=== PATIENT | male | born 1985 | race Caucasian/White ===

== ENCOUNTER 2021-02-17 17:42 | Emergency (ER) | payer BC, SELFPAY ==
[2021-02-17 17:50] VITALS: BP 152/84; PULSE 97; RESP 16; TEMP 36.9; O2SAT 99
--- NOTE | 2021-02-17 17:51 | ED.DENTAL ---
HPI - Dental/Oral General Chief complaint: Dental/Oral Stated complaint: Tooth pain Time Seen by Provider: 02/17/21 17:57 Mode of arrival: ambulatory Limitations: no limitations History of Present Illness HPI Narrative: 35-year-old male presents with concern for right lower dental pain for several days. Reports he has broken teeth in that area, and had a piece of steak several days ago and after that began having pain. Reports history of dental infections. Reports he does not have dental insurance. He denies difficulty swallowing, fever, body aches, chills. Reports pain ebbs and flows from a 3/10 to a 10/10. Reports has been taking ibuprofen. Complaint: tooth pain Related Data Allergies Allergy/AdvReac Type Severity Reaction Status Date / Time No Known Allergies Allergy Unknown Verified 01/27/06 12:13 Review of Systems Review of Systems: CONSTITUTIONAL: Denies malaise, chills, sweats, or fever. EYES: Denies visual changes ENT: Denies rhinorrhea, congestion, sinus pain, otalgia or sore throat. Reports right lower dental pain CARDIOVASCULAR: Denies chest pain, palpitations RESPIRATORY: Denies cough or dyspnea. SKIN: Denies rash or itching. MUSCULOSKELETAL: Denies myalgia. NEUROLOGIC: Denies numbness, weakness, or headache. All systems reviewed & are unremarkable except as noted in HPI and below PMFSH Comments At time of signature, agree with nursing past medical, surgical, social and family history. There is no relevant family history pertinent to the presenting complaint Exam Narrative: GENERAL: Well-appearing, well-nourished, and in no acute distress. HEAD: Normocephalic, atraumatic. EYES: PERRLA, sclera clear ENT: Nares clear, turbinates pink, no rhinorrhea or epistaxis. Mucous membranes moist. TM pearly gann with sharp light reflex bilaterally; no tragal tenderness. Oropharynx without erythema or lesions. Tonsils not enlarged and without exudate. Missing teeth, broken teeth, caries throughout. No jaw swelling noted NECK: Supple. No lymphadenopathy. CHEST: No respiratory distress. Speaks in full sentences. HEART: Regular rate and rhythm. SKIN: Warm, dry, no visible rash. NEURO: Alert and oriented x3. PSYCH: Normal mood and affect Course Course Emergency Course: Patient is aware of diagnosis, understands and agrees to treatment plan. Anticipatory guidance given. Patient agrees to follow-up as directed and is aware of reasons to seek care at the emergency department. Portions of this record may have been created with voice recognition software Level of Care: Express Care Visit Vital Signs Vital signs: Reviewed. MDM - Dental/Oral MDM Narrative Medical decision making narrative: Patients pain and complaint coupled with physical findings are consistant with dentalgia. There are no focal signs of space occupying lesions that are compromising to the airway; no dysphagia, odynophagia, dysphonia, or dyspnea. No uvular deviation or soft palate edema. Patient is non-toxic appearing. The floor of the mouth is soft with no signs of Christopher's Angina; no induration below mandible, no neck pain. Patient is without trismus or drooling and able to swallow secretions. Patient is felt appropriate for discharge home with dental follow up. Differential Diagnosis Differential diagnosis: Likely gingival abscess, dental caries, toothache, dental abscess, fracture of tooth and aphthous ulcer Critical Care Time Critical Care Time Critical Care Time: No Discharge Plan Discharge Clinical Impression: Toothache Patient Disposition: Home, Self-Care Condition: Stable Instructions: Antibiotic Form, Toothache (ED) Additional Instructions: Take antibiotic as directed Avoid temperature extremes May apply heat or ice to the face Gentle brushing and flossing Alternate Tylenol and ibuprofen as needed for pain Follow-up with the dentist as soon as possible--see the list provided Prescriptions: New clindamycin
== END 2021-02-17 18:12 | disposition home or self-care (01) ==
PROVIDERS: Emergency Provider Nurse Practitioner
DX: K08.89 Other specified disorders of teeth and supporting structures (principal)
CPT/HCPCS: 99213; G0463

== ENCOUNTER 2021-12-30 17:29 | Emergency (ER) | payer BC, SELFPAY ==
[2021-12-30 17:42] VITALS: BP 136/74; PULSE 100; RESP 18; TEMP 37.2; O2SAT 99
--- NOTE | 2021-12-30 18:48 | ED.URI ---
HPI - URI/Sore Throat General Chief Complaint: Upper Respiratory Infection Stated Complaint: fever/bodyaches Source: patient and RN notes reviewed Mode of arrival: ambulatory Limitations: no limitations History of Present Illness HPI Narrative: 36-year-old male presented for complaint of headache, body aches, sinus pressure/congestion, cough, fever/chills. Onset yesterday. Endorses son is sick with COVID. Denies nausea, vomiting, shortness of breath or wheezing. MD elicited complaint: cough Related Data Home Medications Medication Instructions Recorded Confirmed No Home Medications 12/30/21 12/30/21 Allergies Allergy/AdvReac Type Severity Reaction Status Date / Time No Known Allergies Allergy Unknown Verified 01/27/06 12:13 Review of Systems Review of Systems: CONSTITUTIONAL: Endorses malaise, chills, sweats, fever EYES: Denies visual changes, redness, or discharge ENT: Reports rhinorrhea, congestion, sinus pain, otalgia, sore throat CARDIOVASCULAR: Denies chest pain, palpitations, edema RESPIRATORY: Reports cough, post nasal drainage. Denies dyspnea GASTROINTESTINAL: Denies abdominal pain, nausea, vomiting, diarrhea SKIN: Denies rash or itching MUSCULOSKELETAL: Endorses myalgia NEUROLOGIC: reports headache Exam Narrative: GENERAL: Ill-appearing, nontoxic EYES: PERRLA, conjunctivae clear ENT: Mucous membranes moist. CHEST: Clear to auscultation, breath sounds equal. No wheezing, rhonchi, rales, or stridor. No respiratory distress, speaks in full sentences. HEART: Regular rate and rhythm. No murmur heard. SKIN: Warm, dry, no rash. NEURO: Alert and oriented x3. PSYCH: Normal mood and affect Course Course Emergency Course: Patient is aware of diagnosis, understands and agrees to treatment plan. Anticipatory guidance given. Patient agrees to follow-up as directed and is aware of reasons to seek care at the emergency department. Portions of this record may have been created with voice recognition software Level of Care: Express Care Visit Vital Signs Vital signs: Vital Signs Temperature 98.9 F 12/30/21 17:42 Pulse Rate 100 12/30/21 17:42 Respiratory Rate 18 12/30/21 17:42 Blood Pressure 136/74 12/30/21 17:42 Pulse Oximetry 99 12/30/21 17:42 Oxygen Delivery Room Air 12/30/21 17:42 Temperature 98.9 F 12/30/21 17:42 Pulse Rate 100 12/30/21 17:42 Respiratory Rate 18 12/30/21 17:42 Blood Pressure 136/74 12/30/21 17:42 Pulse Oximetry 99 12/30/21 17:42 Oxygen Delivery Room Air 12/30/21 17:42 reviewed MDM - URI/Sore Throat MDM Narrative Medical decision making narrative: covid positive. result reviewed with pt. Advised supportive measures and signs/symptoms to go to the ER. Pt is appropriate for outpt treatment and f/u. Differential Diagnosis Differential diagnosis: Likely upper respiratory infection, sinusitis and viral infection Lab Data Labs: Lab Results 12/30/21 Range/Units 17:50 POC SARS CoV-2 Ag Positive (Negative) Discharge Plan Discharge Clinical Impression: COVID-19 Patient Disposition: Home, Self-Care Condition: Stable Instructions: COVID-19 (Coronavirus Disease 2019) (ED) Additional Instructions: Your rapid COVID test was positive today. The following recommendations have been made by the CDC and local Health Departments, regarding COVID-19: -Those individuals with mild cases of COVID-19 can generally be discontinued from isolation 5 days AFTER the onset of symptoms AND the resolution of fever for 24hrs (without the use of fever-reducing medications)* -When you return to public, wear a mask at all times for an additional 5 days Rest, stay hydrated. Tylenol 1000mg every 8 hours as needed for pain/fever; alternate with ibuprofen 600mg every 8 hours as needed Flonase/nasal spray, Zyrtec, cough syrup cold/flu medications for symptoms as needed Prescriptions: No Action No Home Medications Follow
== END 2021-12-30 18:59 | disposition home or self-care (01) ==
PROVIDERS: Emergency Provider Nurse Practitioner Family
DX: U07.1 COVID-19 (principal)
CPT/HCPCS: 87426; 99213; C9803; G0463

== ENCOUNTER 2023-07-13 12:02 | Emergency (ER) | payer BC, SELFPAY ==
--- NOTE | 2023-07-13 12:03 | ED.DENTAL ---
HPI - Dental/Oral General Chief complaint: Dental/Oral Stated complaint: left side tooth pain Time Seen by Provider: 07/13/23 12:03 Source: patient Mode of arrival: ambulatory Limitations: no limitations History of Present Illness HPI Narrative: Lenin is a 38-year-old male patient presenting to the clinic today with complaints of left-sided upper dental pain. He reports this has been going on for the past 4 days. States that he has very poor dentition and has a fracture of his left upper molar that has broken worse after eating steak a few days ago. Is complaining of pain and swelling to the left upper jaw/tooth ache Related Data Allergies Allergy/AdvReac Type Severity Reaction Status Date / Time No Known Allergies Allergy Unknown Verified 07/13/23 12:05 Review of Systems Review of Systems: Pertinent positives per HPI. Patient denies any fever, chills, rash, headache, visual changes, dizziness, cough, runny nose, sore throat, shortness of breath, chest pain, palpitations, nausea, vomiting, diarrhea, constipation, abdominal pain, or any urinary issues. PMFSH Comments At the time of my signature, I reviewed and agree with the nursing past medical, surgical, social, and family history. There is no relevant family history pertinent to the patient complaint. Exam Narrative: General: Well-developed, well nourished, in no apparent distress Head: Normocephalic, atraumatic Eyes: Pupils equally round and reactive to light bilaterally, EOM intact, sclera and conjunctive clear, no discharge, lids normal Ears: TMs intact and clear, ear canals clear, no drainage, grossly hearing normal. Nose: Nares patent, no discharge, no inflammation, no sinus tenderness. Mouth: Oropharynx without lesions or masses, very poor dentition, MMM. Fracture/decay of the left upper 2nd molar. Neck: Supple, trachea midline, no enlargement of anterior or posterior cervical nodes, no thyroid masses or goiter palpable. Cardio: Regular rate and rhythm, s1 and s2 normal, no murmur appreciated. Resp: Clear to auscultation bilaterally anteriorly and posteriorly, no rhonchi, rales, wheezing or rubs Course Course Emergency Course: Portions of this record may have been created with voice recognition software. Level of Care: Express Care Visit Vital Signs Vital signs: Vital signs reviewed MDM - Dental/Oral MDM Narrative Medical decision making narrative: At the time of visit patient is resting comfortably on the exam table. Patient appears to be nontoxic. Plan: I suspect patient has a toothache-tooth is fractured and decayed. Will follow-up with the dentist as soon as possible. Prescription for clindamycin was sent to the pharmacy. Supportive measures were discussed with the patient and they voiced understanding discharge instructions and agrees to treatment plan. Return precautions reviewed Differential Diagnosis Differential diagnosis: Likely gingival abscess, dental caries, toothache, dental abscess, fracture of tooth and aphthous ulcer Discharge Plan Discharge Clinical Impression: Toothache Patient Disposition: Home, Self-Care Condition: Stable Instructions: Antibiotic Form, Toothache (ED) Additional Instructions: Increase fluids and stay well hydrated Take Tylenol/Motrin as needed for pain May apply ice pack to the affected area to help alleviate pain Take antibiotics as prescribed Follow-up with your dentist as soon as possible Prescriptions: New clindamycin HCl 300 mg capsule 300 mg PO Q8H 10 Days Qty: 30 0RF Follow-up/Referrals: PHYSICIAN,PICTURE ENLARGER [Primary Care Provider] - Time of Disposition: 12:30 Quality NIHSS Nursing Documentation ED NIHSS nursing documentation: reviewed/agree
[2023-07-13 12:13] VITALS: BP 134/87; PULSE 69; RESP 16; TEMP 36.9; O2SAT 100
== END 2023-07-13 12:35 | disposition home or self-care (01) ==
LOC: EXPCOLL 12:08
PROVIDERS: Emergency Provider Nurse Practitioner Family
DX: K08.89 Other specified disorders of teeth and supporting structures (principal); Z86.16 Personal history of COVID-19
CPT/HCPCS: 99213; G0463

== ENCOUNTER 2024-05-24 12:34 | Emergency (ER) | payer BC, SELFPAY ==
[2024-05-24 12:47] VITALS: BP 116/74; PULSE 77; RESP 16; TEMP 36.6; O2SAT 100
--- NOTE | 2024-05-24 13:01 | ED_ITS ---
HPI - URI/Sore Throat General Chief Complaint: Upper Respiratory Infection Stated Complaint: sinus problem ,left ear pain,chest congestion Time Seen by Provider: 05/24/24 12:55 Source: patient Mode of arrival: ambulatory Limitations: no limitations History of Present Illness HPI Narrative: Lenin is a 39-year-old female patient presenting to the clinic today with complaints of sinus congestion, left ear pain, and chest congestion. He reports symptoms have been going on for 5 days. Has felt feverish. Denies any chest pain or shortness of breath. Related Data Allergies Allergy/AdvReac Type Severity Reaction Status Date / Time No Known Allergies Allergy Unknown Verified 05/24/24 12:36 Review of Systems Review of Systems: Pertinent positives per HPI. Patient denies any rash, headache, visual changes, dizziness, shortness of breath, chest pain, palpitations, nausea, vomiting, diarrhea, constipation, abdominal pain, or any urinary issues. PMFSH Comments At the time of my signature, I reviewed and agree with the nursing past medical, surgical, social, and family history. There is no relevant family history pertinent to the patient complaint. Exam Narrative: General: Well-developed, well nourished, in no apparent distress Head: Normocephalic, atraumatic Eyes: Pupils equally round and reactive to light bilaterally, EOM intact, sclera and conjunctive clear, no discharge, lids normal Ears: Right TMs intact and clear, left TM intact, bulging, red, ear canals clear, no drainage, grossly hearing normal. Nose: Nares patent, clear nasal discharge, moderate inflammation, no sinus tenderness. Mouth: Oral pharynx without lesions or masses, good dentition, MMM. Neck: Supple, trachea midline, no enlargement of anterior or posterior cervical nodes, no thyroid masses or goiter palpable. Cardio: Regular rate and rhythm, s1 and s2 normal, no murmur appreciated. Resp: Clear to auscultation bilaterally, no rhonchi, rales, wheezing or rubs Course Course Emergency Course: Portions of this record may have been created with voice recognition software. Level of Care: Express Care Visit Vital Signs Vital signs: Vital Signs Temperature 36.6 C 05/24/24 12:47 Pulse Rate 77 05/24/24 12:47 Respiratory Rate 16 05/24/24 12:47 Blood Pressure 116/74 05/24/24 12:47 Pulse Oximetry 100 05/24/24 12:47 Oxygen Delivery Room Air 05/24/24 12:47 Temperature 36.6 C 05/24/24 12:47 Pulse Rate 77 05/24/24 12:47 Respiratory Rate 16 05/24/24 12:47 Blood Pressure 116/74 05/24/24 12:47 Pulse Oximetry 100 05/24/24 12:47 Oxygen Delivery Room Air 05/24/24 12:47 Vital signs reviewed MDM - URI/Sore Throat MDM Narrative Medical decision making narrative: At the time of visit patient is resting comfortably on the exam table. Patient appears to be nontoxic. Plan: I suspect patient has left otitis media/URI. Will send in prescription for prednisone and amoxicillin. Supportive measures were discussed with the patient and they voiced understanding discharge instructions and agrees to treatment plan. Return precautions reviewed Differential Diagnosis Differential diagnosis: Likely upper respiratory infection, otitis media, sinusitis, viral infection, bronchitis, influenza, pharyngitis and other (COVID) Discharge Plan Discharge Clinical Impression: Acute left otitis media Upper respiratory infection Qualifiers: URI type: unspecified URI Qualified Code(s): J06.9 - Acute upper respiratory infection, unspecified Patient Disposition: Home Condition: Stable Instructions: Antibiotic Form, Ear Infection (ED), Cold Symptoms (ED) Additional Instructions: Take prescription medications only as prescribed-amoxicillin and prednisone Increase fluids and stay well hydrated Tylenol/motrin for pain/fever Flonase and OTC antihistamines as directed Vicks vapor rub to open sinuses Sinus rinses for congestion Cepacol spray, cough drops, throat lozenges, warm tea with honey/lemon, gargle salt water to soothe throat BRAT diet for diarrhea Clear liquids x 24 hours then advance as tolerated for nausea/vomiting Go to the ED if you develop a worsening in your condition- high fever not controlled by Tylenol or Motrin, dehydration, weakness, lethargy, shortness of breath, or chest pain. Follow up with your PCP in 3-5 days if symptoms persist. Patient Language: Wallisian Prescriptions: New amoxicillin 875 mg tablet 875 mg PO Q12H 7 Days Qty: 14 0RF prednisone 20 mg tablet 40 mg PO DAILY 5 Days Qty: 10 0RF Follow-up/Referrals: PHYSICIAN,PEOPLESOFT DEVELOPER [Primary Care Provider] - Stand Alone Forms: Work/School Release IP Time of Disposition: 13:02 Quality NIHSS Nursing Documentation ED NIHSS nursing documentation: reviewed/agree
== END 2024-05-24 13:07 | disposition home or self-care (01) ==
PROVIDERS: Emergency Provider Nurse Practitioner Family
DX: H66.92 Otitis media, unspecified, left ear (principal); J06.9 Acute upper respiratory infection, unspecified; Z86.16 Personal history of COVID-19
CPT/HCPCS: 99213; G0463

== ENCOUNTER 2024-05-31 17:35 | Emergency (ER) | payer BC, SELFPAY ==
[2024-05-31 17:43] VITALS: BP 136/88; PULSE 79; RESP 19; TEMP 36.9; O2SAT 100
--- NOTE | 2024-05-31 17:46 | ED.GENADULT ---
HPI - General Adult General Chief complaint: Ear Stated complaint: Left Ear Irritation Time Seen by Provider: 05/31/24 17:46 Source: patient, RN notes reviewed and old records reviewed Mode of arrival: ambulatory Limitations: no limitations History of Present Illness HPI narrative: [age]-year-old male presents to the [facility] with continued left ear discomfort, denies pain, reports decreased hearing and fullness. Was evaluated, prescribed steroids and a antibiotic for an ear infection. Related Data Allergies Allergy/AdvReac Type Severity Reaction Status Date / Time No Known Allergies Allergy Unknown Verified 05/31/24 17:47 Review of Systems Review of Systems: All systems reviewed & are unremarkable except as noted in HPI and below Constitutional: Constitutional: Reports no additional constitutional complaints ENT: Reports as per HPI Cardiovascular: Cardiovascular: Reports no additional cardiovascular complaints, Denies chest pain and Denies dyspnea Respiratory: Respiratory: Reports no additional respiratory complaints, Denies chest congestion, Denies cough and Denies dyspnea Musculoskeletal: Musculoskeletal: Reports no additional musculoskeletal complaints Integumentary/Breasts: Skin/Breast: Reports system reviewed and no additional complaints, except as docu PMFSH Comments At the time of my signature, I reviewed and agree with the nursing past medical, surgical, social, and family history. There is no relevant family history pertinent to the patient complaint. Exam Const: General: cooperative, healthy appearing, comfortable, no acute distress, well developed, alert and well nourished Nutritional Appearance: well nourished Orientation/consciousness: patient oriented x3 Limitations: no limitations HENMT: Head: normal to inspection Ears: hearing grossly normal bilaterally, external ears normal, TM normal on the right, EAC's normal, mastoids normal, no periauricular adenopathy and TM abnormal wth effusion serous on the left Mouth: Yes Normal oral and palatal mucosa present, Yes lip normal, Yes tongue normal and Yes moist mucous membranes Throat: posterior oropharynx normal, uvula midline and no uvular edema Eyes: General: appearance normal, both eyes and all related structures Alignment and Position: alignment normal Neck: Neck: normal visual inspection, full ROM, no lymphadenopathy and no meningeal signs Chest: Chest palpation & inspection: normal inspection of the chest Resp: Effort & Inspection: normal respiratory effort and able to speak in complete sentences Auscultation: clear to auscultation bilaterally, no crackles, no rales, no rhonchi and no wheezes Cardio: Rate: regular rate Skin: General skin exam: normal color and no rashes or lesions noted Neuro: General: patient oriented x3, gait normal, moves all extremities and no meningeal signs Cognition (Neuro): normal cognition Speech: normal speech Gait exam (Neuro): Normal gait present Extrem: General: normal to inspection, full ROM, capillary refill normal and normal gait Psych: Appearance: grossly normal and well kempt Mental Status: mental status grossly normal Speech and movement: Normal speech and movement present and Clear speech present Affect: normal affect Attitude: cooperative Course Course Level of Care: Express Care Visit Vital Signs Vital signs: Vital Signs Temperature 98.4 F 05/31/24 17:43 Pulse Rate 79 05/31/24 17:43 Respiratory Rate 19 05/31/24 17:43 Blood Pressure 136/88 05/31/24 17:43 Pulse Oximetry 100 05/31/24 17:43 Oxygen Delivery Room Air 05/31/24 17:43 Temperature 98.4 F 05/31/24 17:43 Pulse Rate 79 05/31/24 17:43 Respiratory Rate 19 05/31/24 17:43 Blood Pressure 136/88 05/31/24 17:43 Pulse Oximetry 100 05/31/24 17:43 Oxygen Delivery Room Air 05/31/24 17:43 Reviewed Medical Decision Making MDM Narrative Medical decision making narrative: Patient sitting in exam room. Patient is nontoxic, vitals stable. Patient in no acute distress. Patient presents with continued fullness and decreased hearing of the left ear. Still with effusion, clear. No longer erythema to the left TM. Will prescribe 3 dish in all days of antibiotics, discussed also [id number] products. Patient appropriate for outpatient treatment with close follow-up Discharge instructions reviewed with patient, as well as provided in writing per nursing staff. The instructions also include specific and strict return/GO TO THE ER as well as f/u information. All questions have been answered, and the patient deny any further questions with discharge and discharge plan. Some parts of this dictation were generated by voice recognition software and may contain typographical and/or grammatical inaccuracies. Differential Diagnosis Differential Diagnosis: Otitis media, serous otitis, URI Medical Records Medical records reviewed: Yes I reviewed the external patient's medical records. Vital Signs Vital Signs: Vital Signs Temperature 98.4 F 05/31/24 17:43 Pulse Rate 79 04/17/25 17:43 Respiratory Rate 19 05/31/24 17:43 Blood Pressure 136/88 05/31/24 17:43 Pulse Oximetry 100 05/31/24 17:43 Oxygen Delivery Room Air 05/31/24 17:43 Temperature 98.4 F 05/31/24 17:43 Pulse Rate 79 05/31/24 17:43 Respiratory Rate 19 05/31/24 17:43 Blood Pressure 136/88 05/31/24 17:43 Pulse Oximetry 100 05/31/24 17:43 Oxygen Delivery Room Air 05/31/24 17:43 Reviewed Lab Data Lab results reviewed: Yes I reviewed the patient's lab results. Labs: Reviewed Critical Care Time Critical Care Time Critical Care Time: No Discharge Plan Discharge Clinical Impression: Acute serous otitis media of left ear Patient Disposition: Home Condition: Stable Instructions: Antibiotic Form, Fluid In The Ear (Serous Otitis Media) (ED) Additional Instructions: Three additional days of the antibiotic has been prescribed to you. After an ear infection you can have some pressure, fluid in the ear for a couple of weeks after it does clear. Please follow-up with ENT or primary care provider for further evaluation if symptoms are not improving It is very important to treat your symptoms. Drink plenty of water, Gatorade, Pedialyte, ice pops or Jell-O. -Alternate Tylenol and Motrin per package directions for fever or pain. You can alternate every 4 hours -Antihistamine medication such as Zyrtec/Claritin/Fay during the day can help improve symptoms. -doing daily nasal irrigations can help relieve pressure your sinuses. Things like a Neti pot -Use Flonase twice a day for 5 days then daily to help reduce the inflammation and dry up your sinuses. -You can also use Mucinex. Be sure to drink plenty of water with this medication at least 8 ounces with every dose and it is important to drink 8 to 10 glasses of water per day. Water is a natural decongestant -Eat and drink things that are easy to swallow, like tea or soup, or popsicles. -Oral rinses such as: Salt water gargles and/or may use topical anesthetic (eg. Chloraseptic spray) or lozenges to relieve dryness or throat pain). -Frequent hand washing or hand procurement representative is one of the best ways to prevent spread of infection. -Using a vaporizer or humidifier at night will also help thin secretions and help with coughing up phlegm. -Follow up with primary care provider in 7-10 days if condition is not improving - For new or worsening symptoms go directly to the nearest ER Patient Language: Portuguese Prescriptions: New amoxicillin-pot clavulanate 875-125 mg tablet 1 tablet PO Q12H 3 Days Qty: 6 0RF Follow-up/Referrals: Karen Rose DO [Physician] - Terry Camejo MD [Physician] - PHYSICIAN,SERVICE SUPERVISOR [Primary Care Provider] - Stand Alone Forms: Work/School Release IP Time of Disposition: 17:59
== END 2024-05-31 18:03 | disposition home or self-care (01) ==
PROVIDERS: Emergency Provider Nurse Practitioner
DX: H65.02 Acute serous otitis media, left ear (principal)
CPT/HCPCS: 99213; G0463

== ENCOUNTER 2024-08-15 08:44 | Emergency (ER) | payer BC, SELFPAY ==
--- NOTE | 2024-08-15 08:46 | ED_ITS ---
HPI - Skin/Abscess/Foreign Bdy General Chief complaint: Skin/Abscess/Foreign Body Stated complaint: Skin Issues Time Seen by Provider: 08/15/24 08:45 Source: patient Mode of arrival: ambulatory Limitations: no limitations History of Present Illness HPI narrative: Lenin is a 39-year-old male patient presenting to the clinic today with complaints a rash to the chin x4 days. He reports he is concerned it may be ringworm. 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 He states that the rash itches, stings, and can be painful. Denies fevers, chills, body aches. Related Data Allergies Allergy/AdvReac Type Severity Reaction Status Date / Time No Known Allergies Allergy Unknown Verified 08/15/24 08:59 Review of Systems Review of Systems: Pertinent positives per HPI. Patient denies any fever, chills, rash, headache, visual changes, dizziness, cough, runny nose, sore throat, shortness of breath, chest pain, palpitations, nausea, vomiting, diarrhea, constipation, abdominal pain, or any urinary issues. PMFSH Comments At the time of my signature, I reviewed and agree with the nursing past medical, surgical, social, and family history. There is no relevant family history pertinent to the patient complaint. Exam Narrative: General: Well-developed, well nourished, in no apparent distress Head: Normocephalic, atraumatic. Cardio: Regular rate and rhythm, s1 and s2 normal, no murmur appreciated. Resp: Clear to auscultation bilaterally, no rhonchi, rales, wheezing or rubs. Integumentary: [place], warm, and dry, blister/pustular lesions in the hair follicles of the chin, mild redness, tender to palpation Course Course Emergency Course: Portions of this record may have been created with voice recognition software. Level of Care: Express Care Visit Vital Signs Vital signs: Vital Signs Temperature 36.4 C 08/15/24 08:53 Pulse Rate 83 08/15/24 08:53 Respiratory Rate 12 08/15/24 08:53 Blood Pressure 142/83 H 08/15/24 08:53 Pulse Oximetry 100 08/15/24 08:53 Oxygen Delivery Room Air 08/15/24 08:53 Temperature 36.4 C 08/15/24 08:53 Pulse Rate 83 08/15/24 08:53 Respiratory Rate 12 08/15/24 08:53 Blood Pressure 142/83 H 08/15/24 08:53 Pulse Oximetry 100 08/15/24 08:53 Oxygen Delivery Room Air 08/15/24 08:53 Vital signs reviewed MDM - Skin/Abscess/Foreign Bdy MDM Narrative Medical decision making narrative: At the time of visit patient is resting comfortably on the exam table. Patient appears to be nontoxic. Plan: I suspect patient has folliculitis. Prescription for mupirocin cream and doxycycline was sent to the pharmacy. Supportive measures were discussed with the patient and they voiced understanding discharge instructions and agrees to treatment plan. Return precautions reviewed Differential Diagnosis Differential diagnosis: Likely abscess of skin or subcutaneous tissue, viral exanthem, dermatophytosis, urticaria, herpes zoster, allergic reaction to drug, cellulitis, eczema, insect bites, impetigo, contact dermatitis and other (Folliculitis) Discharge Plan Discharge Clinical Impression: Folliculitis Patient Disposition: Home Condition: Stable Instructions: Antibiotic Form, Folliculitis (ED) Additional Instructions: Keep area clean and dry Apply mupirocin cream to the wound twice daily as directed Take doxycycline as prescribed Follow-up with your doctor in 1 week if symptoms persist May take Tylenol/Motrin as needed for pain Go to the emergency room if symptoms worsen Patient Language: Wolof Prescriptions: New mupirocin calcium 2 % cream 1 applic topical BID 7 Days Qty: 30 0RF doxycycline hyclate 100 mg capsule 100 mg PO BID 7 Days Qty: 14 0RF No Action amoxicillin-pot clavulanate 875-125 mg tablet 1 tablet PO Q12H 3 Days Qty: 6 0RF Follow-up/Referrals: UNKNOWN,DOCTOR [Non-Staff] - Stand Alone Forms: Work/School Release IP Time of Disposition: 08:58 Quality NIHSS Nursing Documentation ED NIHSS nursing documentation: reviewed/agree
[2024-08-15 08:53] VITALS: BP 142/83; PULSE 83; RESP 12; TEMP 36.4; O2SAT 100
== END 2024-08-15 09:04 | disposition home or self-care (01) ==
PROVIDERS: Emergency Provider Nurse Practitioner Family
DX: L73.9 Follicular disorder, unspecified (principal)
CPT/HCPCS: 99213; G0463

== ENCOUNTER 2024-10-13 10:48 | Emergency (ER) | payer BC, SELFPAY ==
[2024-10-13 10:55] VITALS: BP 141/80; PULSE 76; RESP 18; TEMP 36.5; O2SAT 98
--- NOTE | 2024-10-13 10:57 | ED.SKABFB ---
HPI - Skin/Abscess/Foreign Bdy General Stated complaint: rash on body Time Seen by Provider: 10/13/24 11:00 Source: patient Mode of arrival: ambulatory Limitations: no limitations History of Present Illness HPI narrative: Lenin is a 39-year-old male patient presenting to the clinic today with complaints of a rash to his right wrist, right forearm, and right leg x1 day. He reports he thinks he has folliculitis. He was recently diagnosed with folliculitis a couple months ago and given prescription for doxycycline and mupirocin cream. He reports he put the mupirocin cream to the area last night without relief. 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 Denies any recent swimming or being in a hot tub. Related Data Allergies Allergy/AdvReac Type Severity Reaction Status Date / Time No Known Allergies Allergy Unknown Verified 10/13/24 11:00 PMFSH Comments At the time of my signature, I reviewed and agree with the nursing past medical, surgical, social, and family history. There is no relevant family history pertinent to the patient complaint. Exam Narrative: General: Well-developed, well nourished, in no apparent distress Head: Normocephalic, atraumatic. Cardio: Regular rate and rhythm, s1 and s2 normal, no murmur appreciated. Resp: Clear to auscultation bilaterally, no rhonchi, rales, wheezing or rubs. Integumentary: [place], warm, and dry, red, raised, tender, pustular lesions over the hair follicles of the right wrist, right forearm, and right thigh Course Course Emergency Course: Portions of this record may have been created with voice recognition software. Level of Care: Express Care Visit Vital Signs Vital signs: Vital Signs Temperature 36.5 C 10/13/24 10:55 Pulse Rate 76 10/13/24 10:55 Respiratory Rate 18 10/13/24 10:55 Blood Pressure 141/80 H 10/13/24 10:55 Pulse Oximetry 98 10/13/24 10:55 Oxygen Delivery Room Air 10/13/24 10:55 Temperature 36.5 C 10/13/24 10:55 Pulse Rate 76 10/13/24 10:55 Respiratory Rate 18 10/13/24 10:55 Blood Pressure 141/80 H 10/13/24 10:55 Pulse Oximetry 98 10/13/24 10:55 Oxygen Delivery Room Air 10/13/24 10:55 Vital signs reviewed MDM - Skin/Abscess/Foreign Bdy MDM Narrative Medical decision making narrative: At the time of visit patient is resting comfortably on the exam table. Patient appears to be nontoxic. Complaints of a rash to his right wrist, right forearm, and right leg x1 day. He reports he thinks he has folliculitis. He was recently diagnosed with folliculitis a couple months ago and given prescription for doxycycline and mupirocin cream. He reports he put the mupirocin cream to the area last night without relief. 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 Denies any recent swimming or being in a hot tub. Rates pain at 3/10 currently. On exam he has red, raised, tender, pustular lesions over the hair follicles of the right wrist, right forearm, and right thigh. Patient reports he has a history of staph. Plan: I suspect patient has folliculitis. Prescription for doxycycline was sent to the pharmacy. May continue mupirocin cream as directed. Supportive measures were discussed with the patient and they voiced understanding discharge instructions and agrees to treatment plan. Return precautions reviewed Differential Diagnosis Differential diagnosis: Likely abscess of skin or subcutaneous tissue, viral exanthem, dermatophytosis, urticaria, herpes zoster, allergic reaction to drug, cellulitis, eczema, insect bites, impetigo, contact dermatitis and other (Folliculitis) Discharge Plan Discharge Clinical Impression: Folliculitis Patient Disposition: Home Condition: Stable Instructions: Antibiotic Form, Folliculitis (ED) Additional Instructions: Take doxycycline as prescribed. May take Tylenol/Motrin as needed for pain or fever Keep areas clean and dry Do not pop the pustule lesions. Follow-up with your primary care doctor in 3-5 days if symptoms persist Patient Language: Colombian Prescriptions: New doxycycline monohydrate 100 mg capsule 100 mg PO BID 7 Days Qty: 14 0RF No Action mupirocin calcium 2 % cream 1 applic topical BID 7 Days Qty: 30 0RF doxycycline hyclate 100 mg capsule 100 mg PO BID 7 Days Qty: 14 0RF Follow-up/Referrals: PHYSICIAN,EVENT SERVICES MANAGER [Primary Care Provider, Internal Medicine] Time of Disposition: 10:59 Quality NIHSS Nursing Documentation ED NIHSS nursing documentation: reviewed/agree
== END 2024-10-13 11:05 | disposition home or self-care (01) ==
PROVIDERS: Emergency Provider Nurse Practitioner Family
DX: L73.9 Follicular disorder, unspecified (principal)
CPT/HCPCS: 99213; G0463

== ENCOUNTER 2025-01-21 08:36 | Emergency (ER) | payer BC, SELFPAY ==
[2025-01-21 08:44] VITALS: BP 137/86; PULSE 74; RESP 16; TEMP 36.4; O2SAT 100
--- NOTE | 2025-01-21 08:58 | ED.SKABFB ---
HPI - Skin/Abscess/Foreign Bdy General Chief complaint: Skin/Abscess/Foreign Body Stated complaint: spots on skin Time Seen by Provider: 01/21/25 08:58 Source: patient, RN notes reviewed and old records reviewed Mode of arrival: ambulatory Limitations: no limitations History of Present Illness HPI narrative: 39 year old male presents to [facility] care with complaints of itchy rash to the upper back for about a week and also raised itchy spot to his left side. 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 Patient reports that he always showers with antibacterial soap after practices. Patient has been scratching areas wth some reddened open noted pustules on his upper back with some scabbing. He states that he has been applying Neosporin ointment to lesions MD complaint: rash Onset (ago): week(s) (1) Location: back (upper back and to his left side) Severity: moderate Quality: pruritic Treatments prior to arrival: other (washed with antibacterial soap and Neosporin ointment) Related Data Allergies Allergy/AdvReac Type Severity Reaction Status Date / Time No Known Allergies Allergy Unknown Verified 01/21/25 08:56 Review of Systems Review of Systems: CONSTITUTIONAL: Denies fever, chills, or sweats. CARDIOVASCULAR: Denies chest pain, palpitations, or edema. RESPIRATORY: Denies cough or dyspnea. SKIN: Reports raised itchy rash to the bilateral of upper back and lesion also left side MUSCULOSKELETAL: Denies joint pain or myalgia. NEUROLOGIC: Denies headache, numbness, or weakness. All systems reviewed & are unremarkable except as noted in HPI and below PMFSH Past Medical History Medical History History of dental problems Surgical History Surgical History H/O thumb surgery right thumb nerve repair Social History Social History Smoking status: Former smoker Alcohol intake: current Alcohol use details: social Substance use type: does not use Living arrangements: with family Gender identity (if verbalized by the patient): Male Comments At time of signature, agree with nursing past medical, surgical, social and family history. There is no relevant family history pertinent to the presenting complaint Exam Narrative: GENERAL: Well-appearing, well-nourished, and in no acute distress. HEAD: Normocephalic, atraumatic. EYES: PERRLA, conjunctivae clear, and EOMI. ENT: Mucous membranes moist. Oropharynx without edema, erythema or lesions. NECK: Supple. No lymphadenopathy CHEST: Clear to auscultation. No respiratory distress.SAO2 100% on room air HEART: Regular rate and rhythm. SKIN: Warm, dry.? Patches of red raised lesion with some open and some scabbing to upper back and one area to left side of chest which are itchy, no drainage noted NEURO:? Alert and oriented x3. PSYCH: Normal mood and affect Course Course Level of Care: Express Care Visit Vital Signs Vital signs: Vital Signs Temperature 36.4 C L 01/21/25 08:44 Pulse Rate 74 01/21/25 08:44 Respiratory Rate 16 01/21/25 08:44 Blood Pressure 137/86 01/21/25 08:44 Pulse Oximetry 100 01/21/25 08:44 Oxygen Delivery Room Air 01/21/25 08:44 Temperature 36.4 C L 01/21/25 08:44 Pulse Rate 74 01/21/25 08:44 Respiratory Rate 16 01/21/25 08:44 Blood Pressure 137/86 01/21/25 08:44 Pulse Oximetry 100 01/21/25 08:44 Oxygen Delivery Room Air 01/21/25 08:44 [facility] MDM Narrative Medical decision making narrative: Patient presents to express care with rash to upper back and site to left side reports that he does martial arts. Patient reports rash is itchy and he has had folliculitis in past. Will treat with antibiotic and Mupirocin ointment and antibacterial soap wash 2 X daily. Anticipatory guidance and reasons to seek care in ED reviewed. Differential Diagnosis Differential Diagnosis: Differential diagnostic considerations for skin/abscess/foreign body issues include abscess of skin or subcutaneous tissue, viral exanthem, dermatophytosis, urticaria, herpes zoster, allergic reaction to drug, cellulitis, eczema, insect bites, impetigo, contact dermatitis, vasculitis., folliculitis Critical Care Time Critical Care Time Critical Care Time: No Discharge Plan Discharge Clinical Impression: Folliculitis Patient Disposition: Home Condition: Stable Instructions: Antibiotic Form, Folliculitis (ED) Additional Instructions: wash affected area twice daily with liquid antibacterial soap and apply Mupiricin ointment watch for increasing infection--redness, swelling, drainage Tylenol or Ibuprofen for pain May take Benadryl for itching every 6 hours may cause drowsiness. follow up with PCP in 7-10 days for a wound check recheck if develop fever, chills, increasing symptom Go to the ER if your symptoms become worse of if ANY new symptoms develop Take prescribed antibiotic till completed If your symptoms persist, change or worsen significantly before you can contact your personal physician then please, without delay, go to the emergency department for further evaluation. Follow-up with PCP in 7-10 days or sooner if needed Follow up with PCP soon in regards to your blood pressure which is elevated above threshold for referral. Blood pressure above 120/80 may indicate pre-hypertension.137/86 Patient Language: Sami Prescriptions: New doxycycline hyclate 100 mg tablet 100 mg PO BID Qty: 14 0RF mupirocin [Centany] 2 % ointment 1 applic topical BID Qty: 22 0RF Follow-up/Referrals: PHYSICIAN,TUBE WORKER [Primary Care Provider, Internal Medicine] Stand Alone Forms: Work/School Release IP Time of Disposition: 09:04 Quality [place] Coma Scale Eyes: Open Verbal: Oriented and Alert Motor: Follows Commands [place] Coma Total Score: 15
== END 2025-01-21 09:11 | disposition home or self-care (01) ==
PROVIDERS: Emergency Provider Registered Nurse
DX: L73.9 Follicular disorder, unspecified (principal); Z87.891 Personal history of nicotine dependence
CPT/HCPCS: 99213; G0463